=== PATIENT | female | born 1990 | race Caucasian/White ===

== ENCOUNTER 2016-09-14 14:00 | Outpatient (CLI) ==
[2016-03-01 19:56] VITALS: BMI 29.0
[2016-09-14 19:09] LABS: FLU INTERNAL QC INTERNAL QC VALID; RAPID FLU A NEGATIVE (NEGATIVE); RAPID FLU B NEGATIVE (NEGATIVE)
== END 2016-09-14 14:01 | disposition home or self-care (01) ==
LOC: LAB 14:00
PROVIDERS: ATTEND Nurse Practitioner Family
DX: J03.00 Acute streptococcal tonsillitis, unspecified (principal); R50.9 Fever, unspecified
CPT/HCPCS: 87804; 87880

== ENCOUNTER 2016-10-17 08:13 | Outpatient (CLI) ==
[2016-03-01 19:56] VITALS: BMI 29.0
--- NOTE | 2016-10-17 10:18 | MRI ---
EXAM: MRI left hand without contrast. HISTORY: 26-year-old female with left hand pain. Details not otherwise specified. TECHNIQUE: Using a local coil on a high field strength magnet multiplanar multisequence large field of view imaging obtained through the level left hand without intravenous or intra-articular gadolin ium contrast. Note this constitutes incomplete MR evaluation of the left wrist.. FINDINGS: I do not have prior radiographs of the left hand available for comparison at the time of this dictation. Alignment of the left hand shows no dislocation or joint subluxations. Artifact over distal thumb/f nestor tuft which may be secondary to overlying material. No metatarsal fracture/stress fracture. N o bone erosions. On the limited visualization/characterization of the carpus. There is heterogeneous bone marrow sig nal intensity involving the lunate. Intermixed areas of intramedullary decreased T1/increased STIR signal intensity. Question flattened morphology. No definitive scapholunate or lunotriquetral join t space widening. The dorsal extensor and palmar flexor tendons of the hand intact without tenosynovitis or tendon bow stringing. Visualized muscle bulk of the left hand shows normal signal intensity. Artifactual los s of homogeneous fat suppression on transaxial T2 fat-suppressed weighted imaging . The exit of the carpal tunnel within normal limit in appearance.. IMPRESSION: Limited visualization/characterization of the carpus. Bone marrow signal heterogeneity involving the lunate. Question flattened morphology. The appearance can be seen with avascular ne crosis.. Recommendation is correlation clinically as well as with recent plain film radiographs of the left wrist. Following, dedicated MRI of the left wrist could be performed if further evaluation is clinically indicated. Otherwise no acute fracture left hand. No bone erosions, joint subluxations or tenosynovitis.
== END 2016-10-17 08:14 | disposition home or self-care (01) ==
LOC: RAD 08:13
PROVIDERS: ATTEND Nurse Practitioner Family
DX: M79.642 Pain in left hand (principal); M24.542 Contracture, left hand

== ENCOUNTER 2016-10-23 14:35 | Outpatient (CLI) ==
[2016-03-01 19:56] VITALS: BMI 29.0
[2016-10-23 17:16] LABS: FLU INTERNAL QC INTERNAL QC VALID; RAPID FLU A NEGATIVE (NEGATIVE); RAPID FLU B NEGATIVE (NEGATIVE)
== END 2016-10-23 14:36 | disposition home or self-care (01) ==
LOC: LAB 14:35
PROVIDERS: ATTEND Nurse Practitioner Family
DX: R05 Cough (principal); J02.9 Acute pharyngitis, unspecified
CPT/HCPCS: 87651; 87804; 87880

== ENCOUNTER 2017-02-26 15:13 | Outpatient (CLI) ==
[2016-03-01 19:56] VITALS: BMI 29.0
[2017-02-26 15:41] LABS: SERUM PREGNANCY INTERNAL QC INTERNAL QC VALID
== END 2017-02-26 15:14 | disposition home or self-care (01) ==
LOC: LAB 15:13
PROVIDERS: ATTEND Nurse Practitioner Family
DX: N92.6 Irregular menstruation, unspecified (principal)
CPT/HCPCS: 36415; 84703

== ENCOUNTER 2017-03-22 18:21 | Emergency (ER) ==
[2017-03-22 18:27] VITALS: BP 138/92; TEMP 97.4; BMI 32.8
[2017-03-22 18:59] LABS: SERUM PREGNANCY INTERNAL QC INTERNAL QC VALID
--- NOTE | 2017-03-22 18:59 | ED.PDOC ---
General ED Provider: Dr. JOSSE PINA-ER Chief Complaint: Non-specific Complaint Stated Complaint: i want a test so i can have my bcps Time Seen by Physician: 18:30 Mode of Arrival: Walk-In Information Source: Patient Exam Limitations: No limitations Primary Care Provider: IBIS WALLACE Nursing and Triage Documentation Reviewed and Agree: Yes Miscellaneous Complaint Exam - Complex/Multi-System Complaint/Exam Onset/Duration: none Current Severity: None Location of Pain: no pain Associated Signs and Symptoms: Denies: Decreased responsiveness, Confusion, Agitation, Dizziness, Weakness, Syncope, Headache, Short of air, Cough, Wheezing , Hemoptysis, Chest pain, Palpitations, Edema, Nausea, Vomiting, Diarrhea, Abdominal pain, Back pain, Dysuria, Hematemesis, Melena, Decreased oral intake, Fever, Diaphoresis, Immunocompromised, Anticoagulation Therapy, Recent medication changes, Indwelling medical billing and coding specialist, Prior MRSA, Prior VRE, Recent trauma, Remote trauma Recent Echo/LV Function: No JVD Present: No Tachypnea Present: No Stridor Present: No Abdominal Findings: Present: Normal findings Glascow Coma Scale (see protocol): 15 Meningeal Signs Positive: No Focal Weakness: Present: None Focal Sensory Loss: Present: None Gait: Normal Gag Reflex Present: No Babinski Sign: Negative Right, Negative Left Skin Findings: Present: Normal findings Joint Swelling Present: No In-Dwelling Device Present: No Review of Systems - Review Of Systems Constitutional: Reports: No symptoms Eyes: Reports: No symptoms Ears, Nose, Mouth, Throat: Reports: No symptoms Respiratory: Reports: No symptoms Cardiac: Reports: No symptoms GI: Reports: No symptoms : Reports: No symptoms Musculoskeletal: Reports: No symptoms Skin: Reports: No symptoms Neurological: Reports: No symptoms Endocrine: Reports: No symptoms Hematologic/Lymphatic: Reports: No symptoms All Other Systems: Reviewed and Negative Past Medical History - Past Medical History Previously Healthy: Yes Endocrine: Reports: None Cardiovascular: Reports: None Respiratory: Reports: None Hematological: Reports: None Gastrointestinal: Reports: None Genitourinary: Reports: UTI, Kidney stones Neuro/Psych: Reports: Anxiety, Depression Musculoskeletal: Reports: None Cancer: Reports: None Last Menstrual Period: 2 MONTHS - Surgical History General Surgical History: Reports: Unknown - Family History Family History: Reports: Unknown - Social History Smoking Status: Current every day smoker Hx Substance Use: No Alcohol Screening: Occasionally Lives: With family Physical Exam - Physical Exam Appearance: Well-appearing, No pain distress, Well-nourished Eyes: BELLE, EOMI, Conjunctiva clear ENT: Ears normal, Nose normal, Oropharynx normal Neck: Supple Respiratory: Airway patent, Breath sounds clear, Breath sounds equal, Respirations nonlabored Cardiovascular: RRR, Pulses normal, No rub, No murmur GI/: Soft, Nontender, No masses, Bowel sounds normal, No Organomegaly Musculoskeletal: Normal strength Skin: Warm, Dry, Normal color Neurological: Sensation intact, Motor intact, Reflexes intact, Cranial nerves intact, Alert, Oriented Psychiatric: Affect appropriate, Mood appropriate Critical Care Note - Critical Care Note Total Time (mins): 0 Course - Course Orders, Labs, Meds: Lab Review 03/22/17 18:43 Serum , Qual Negative Orders Category Date Time Status SERUM Stat LAB 03/22/17 18:43 Completed Vital Signs: Temp Pulse Resp BP Pulse Ox 03/22/17 18:23 97.4 F L 106 H 18 138/92 H 98 Departure - Departure Time of Disposition: 19:02 Disposition: HOME SELF-CARE Discharge Problem: General symptom Instructions: Oral Contraceptives (By mouth) Condition: Good Pt referred to PMD for follow-up: Yes Additional Instructions: 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 Allergies/Adverse Reactions: Allergies ciprofloxacin [From Cipro] Adverse Reaction (Verified 03/22/17 18:27) Sulfa (Sulfonamide Antibiotics) Adverse Reaction (Verified 03/22/17 18:27) sulfamethoxazole [From Bactrim] Adverse Reaction (Verified 03/22/17 18:27) trimethoprim [From Bactrim] Adverse Reaction (Verified 03/22/17 18:27) Home Medications: Ambulatory Orders Ascorbic Acid [Vitamin C] 500 mg PO d 06/07/16 Cholecalciferol (Vitamin D3) [Vitamin D3] 2,000 unit PO d 09/14/16 Ranitidine HCl 150 mg PO DAILY #60 tab-cap 12/19/16 Norethindrone [Jolivette] 0.35 mg PO ONCE 12 02/26/17 Phentermine HCl 37.5 mg PO 2-4XD 03/22/17 Disposition Discussed With: Patient, Family
== END 2017-03-22 19:06 | disposition home or self-care (01) ==
LOC: ED 18:21
DX: Z32.02 Encounter for pregnancy test, result negative (principal); F17.210 Nicotine dependence, cigarettes, uncomplicated
CPT/HCPCS: 36415; 84703; 99282; 99283

== ENCOUNTER 2017-07-08 14:09 | Outpatient (CLI) ==
[2017-07-08 14:47] LABS: FLU INTERNAL QC INTERNAL QC VALID; RAPID FLU A NEGATIVE (NEGATIVE); RAPID FLU B NEGATIVE (NEGATIVE)
== END 2017-07-08 14:10 | disposition home or self-care (01) ==
LOC: LAB 14:09
PROVIDERS: ATTEND Nurse Practitioner Family
DX: R68.89 Other general symptoms and signs (principal)
CPT/HCPCS: 87804

== ENCOUNTER 2017-08-22 12:09 | Outpatient (CLI) ==
--- NOTE | 2017-08-22 13:29 | DI ---
EXAM: CHEST FRONTAL AND LATERAL VIEWS HISTORY: Cough COMPARISON: 07/03/2013 FINDINGS: Heart size and mediastinal contour remain within normal limits. No acute infiltrates. Normal vascularity with no pleural fluid or pneumothorax. The bony thorax has no acute finding. IMPRESSION: No acute process.
== END 2017-08-22 12:10 | disposition home or self-care (01) ==
LOC: RAD 12:09
PROVIDERS: ATTEND Nurse Practitioner Family
DX: R05 Cough (principal); J02.9 Acute pharyngitis, unspecified; Z00.00 Encounter for general adult medical examination without abnormal findings; Z72.0 Tobacco use
CPT/HCPCS: 36415; 80053; 80061; 84443; 85025; 87651

== ENCOUNTER 2017-11-06 15:10 | Outpatient (CLI) | END 2017-11-06 15:11 | disposition home or self-care (01) | LOC: FCC-LAB 15:10 | PROVIDERS: ATTEND Nurse Practitioner Family | DX: R11.0 Nausea (principal); N91.2 Amenorrhea, unspecified; R11.2 Nausea with vomiting, unspecified; Z32.01 Encounter for pregnancy test, result positive | CPT/HCPCS: 36415; 80053; 81001; 81025; 82150; 83690; 84702; 85025 ==

== ENCOUNTER 2018-08-15 13:50 | Outpatient (CLI) | payer OTHER | END 2018-08-15 13:51 | disposition home or self-care (01) | LOC: RHC-LAB 13:50 → FCC-LAB 13:51 | PROVIDERS: ATTEND Pediatrics Pediatric Cardiology | DX: Z20.828 Contact with and (suspected) exposure to other viral communicable diseases (principal) | CPT/HCPCS: 87502 ==

== ENCOUNTER 2018-08-26 10:22 | Outpatient (CLI) | END 2018-08-26 10:23 | disposition home or self-care (01) | LOC: RHC-LAB 10:22 → FCC-LAB 10:23 | PROVIDERS: ATTEND Family Medicine | DX: F41.9 Anxiety disorder, unspecified (principal); Z68.37 Body mass index [BMI] 37.0-37.9, adult; Z13.220 Encounter for screening for lipoid disorders | CPT/HCPCS: 36415; 80053; 80061; 84443; 85025 ==